=== PATIENT | female | born 1965 | race Caucasian/White ===

== ENCOUNTER 2023-09-16 08:58 | Day surgery (SDC) | payer OTHER ==
[2023-09-16] MEDS ORDERED: ONDANSETRON 4 MG/2 ML VIAL ONE (09:27)
[2023-09-16 09:42] VITALS: TEMP 98.3
[2023-09-16] MEDS: SCOPOLAMINE 1 MG/72 HR PATCH TRANSDERM ONE (09:45)
[2023-09-16] MEDS: LACTATED RINGERS 1,000 ML IV SCH (09:48)
[2023-09-16] MEDS: LIDOCAINE 1% (10MG/ML) FOR IV START INTRADERMA ONE (09:48)
[2023-09-16] MEDS: ONDANSETRON 4 MG/2 ML VIAL IVP ONE (09:49)
[2023-09-16] MEDS ORDERED: PROPOFOL 10 MG/ML 20 ML VIAL IV ONE (10:11)
--- NOTE | 2023-09-16 10:31 | P.PCN ---
Date of Procedure: 09/16/23 Procedure(s) Performed: BRIEF HISTORY: Patient is a 58-year-old pleasant white female scheduled for an elective colonoscopy as a part of screening for colon cancer. PROCEDURE PERFORMED: Colonoscopy. PREOPERATIVE DIAGNOSIS: Screening for colon cancer. IV sedation per Anesthesia. PROCEDURE: After informed consent was obtained, the patient, was brought into the endoscopy unit. IV sedation was administered by Anesthesia under continuous monitoring. Digital rectal examination was normal. Initially the Olympus CF-160 flexible video colonoscope was then inserted in the rectum, gradually advanced into the cecum without any difficulty. Careful examination was performed as the scope was gradually being withdrawn. Ileocecal valve and the appendiceal orifice were visualized and appeared normal. Prep was excellent. Mucosa of the cecum, ascending colon, transverse colon, descending colon, sigmoid colon, and rectum appeared normal. Scattered left sided diverticulosis. Anastomosis from previous sigmoid colectomy located at 35 cm from anal was there appeared normal. Retroflexion was performed in the rectum and no lesions were seen. The patient tolerated the procedure well. IMPRESSION: Normal-appearing colon from rectum to cecum with no evidence of colorectal neoplasia. Scattered left-sided diverticulosis RECOMMENDATIONS: Findings of this examination were discussed with the patient as well as her family. She was advised to have a repeat screening colonoscopy in 10 years.
[2023-09-16 11:01] VITALS: BP 157/84; PULSE 67; RESP 20
== END 2023-09-16 11:09 ==
LOC: ORWHC2ENDO 08:58
PROVIDERS: ATTEND Internal Medicine Gastroenterology
DX: Z12.11 Encounter for screening for malignant neoplasm of colon (principal); K57.30 Diverticulosis of large intestine without perforation or abscess without bleeding; E07.9 Disorder of thyroid, unspecified; F41.9 Anxiety disorder, unspecified; Z79.890 Hormone replacement therapy; Z98.891 History of uterine scar from previous surgery; Z98.890 Other specified postprocedural states; Z79.899 Other long term (current) drug therapy
CPT/HCPCS: 45378; J2405; J2704

== ENCOUNTER 2024-07-06 06:22 | Day surgery (SDC) | payer OTHER ==
[2024-07-01 13:38] VITALS: BMI 29.4
[~2024-07-06 06:22] MED LIST: DEXAMETHASONE SOD PHOSPHATE 4 MG/ML 1 ML VIAL IV ONE; LIDOCAINE 1% (10MG/ML) FOR IV START INTRADERMA PRN
[2024-07-06] MEDS: IV FLUID CONTINUATION 1,000 ML IV ONE ×2 (06:48)
[2024-07-06] MEDS ORDERED: fentaNYL (PF) 50 MCG/ML 2 ML AMP IV PRN (07:00)
[2024-07-06] MEDS: LACTATED RINGERS 1,000 ML IV SCH (07:06)
[2024-07-06] MEDS: ONDANSETRON 4 MG/2 ML VIAL IVP ONE (07:06)
[2024-07-06] MEDS: SCOPOLAMINE 1 MG/72 HR PATCH TRANSDERM STA (07:07)
[2024-07-06] MEDS ORDERED: MIDAZOLAM 2 MG/2 ML VIAL ONE (07:22)
[2024-07-06] MEDS ORDERED: SUCCINYLCHOLINE CHLORIDE 200 MG/10 ML VIAL IV ONE (07:22)
[2024-07-06] MEDS ORDERED: ROCURONIUM 10 MG/ML (5 ML VIAL) IV ONE (07:22)
[2024-07-06] MEDS ORDERED: PROPOFOL 10 MG/ML 20 ML VIAL IV ONE (07:22)
[2024-07-06] MEDS ORDERED: GLYCOPYRROLATE 0.2 MG/ML 2 ML VIAL ONE (07:22)
[2024-07-06] MEDS ORDERED: LIDOCAINE 1% INJ 10MG/ML (20 ML MDV) ONE (07:22)
[2024-07-06] MEDS ORDERED: fentaNYL (PF) 50 MCG/ML 2 ML AMP ONE (07:22)
[2024-07-06] MEDS ORDERED: NEOSTIGMINE 1 MG/ML 10 ML VIAL ONE (07:22)
[2024-07-06] MEDS: ceFAZolin 1,000 MG in SODIUM CHLORIDE 0.9% IRRIGATIO 1,000 ML IRRIGATION PRN (07:26)
[2024-07-06] MEDS: THROMBIN (BOVINE) 5,000 UNIT VIAL TOPICAL ONE (07:51)
[2024-07-06] MEDS: LIDOCAINE 2%-EPI 1:100,000 20 ML VIAL SQ ONE (07:54)
[2024-07-06] MEDS: BUPIVACAINE (PF) 0.5% 30 ML VIAL SQ ONE (07:54)
[2024-07-06] MEDS: LACTATED RINGERS 1,000 ML IV ONE (08:54)
--- NOTE | 2024-07-06 09:04 | XR ---
EXAMINATION TYPE: XR cervical spine 1V DATE OF EXAM: 07/06/2024 COMPARISON: NONE CLINICAL INDICATION: Female, 59 years old with history of ANTERIOR CERVICAL FUSION; TECHNIQUE: Single portable crosstable lateral view of the cervical spine is obtained FINDINGS: Exam is for surgical planning and not for diagnostic purposes. Metallic pointer is localize d to the C6-C7 level. IMPRESSION: As above. . [facility], , 07/06/2024 9:01 AM
[2024-07-06] MEDS ORDERED: HYDROmorphone 0.5 MG/0.5 ML SYRINGE IVP PRN (09:21)
[2024-07-06] MEDS ORDERED: ACETAMINOPHEN TAB 500 MG TAB PO PRN (09:21)
--- NOTE | 2024-07-06 09:28 | P.OP ---
Date of Procedure: 07/06/24 Preoperative Diagnosis: Cervical stenosis C5-6 C6-7, cervical disc herniation C5-6 C6-7, degenerative disc disease C5-6 C6-7, upper extreme radiculopathy, neck pain Postoperative Diagnosis: Same Anesthesia: GETA Pathology: none sent Condition: stable Disposition: PACU Description of Procedure: BRIEF OPERATIVE NOTE Preoperative Diagnosis:Cervical stenosis C5-6 C6-7, cervical disc herniation C5- 6 C6-7, degenerative disc disease C5-6 C6-7, upper extreme radiculopathy, neck pain Postoperative Diagnosis:Cervical stenosis C5-6 C6-7, cervical disc herniation C5-6 C6-7, degenerative disc disease C5-6 C6-7, upper extreme radiculopathy, neck pain Procedure: Anterior cervical decompression with discectomy and fusion C5-6 C6-7 Placement of interbody graft C5-6 C6-7 Application of anterior cervical plate C5-6-7 Surgeon: Dr. Farfan Welder Tech: Forrest BISWAS who is present throughout the entire the case persistence during positioning, dissection, exposure, visualization, and all crucial elements of the case as well as closure. Anesthesia: General anesthesia Estimated blood loss: Approximately 20 cc Complications: None apparent Components implanted: Gavin K2 M Lind[place] anterior cervical plate system with screws and Vikos interbody allograft bone graft x 2 with 1 cc of DBX bone putty Disposition: To recovery room in good stable condition. OPERATIVE INDICATIONS The patient has had long-standing issues in their neck and upper extremities. She has been having significant worsening in her neck in particular to the left side along with her upper extremities. She is found to have significant changes at her cervical spine with evidence of foraminal stenosis with degenerative disc disease and disc herniation which correlated well with her neck and upper extremity symptoms. The patient has been through conservative treatment. We discussed various treatment options including surgery, and the patient wishes to proceed with surgery We discussed the risk, patient's alternatives and benefits of surgery including but not limited to, risk of bleeding risk of infection, risk of need for further surgery, risk of decreased, loss of motion, muscle function, malunion nonunion, hardware failure, nerve damage, paralysis, heart attack, and . OPERATIVE SUMMARY After discussing all the risks, patient alternatives and benefits at length, the patient elected to proceed with surgical intervention, signed informed consent, and presented for their procedure. The patient was seen and examined in the preoperative holding area and the surgical site was marked. The patient was given antibiotics and brought to the operating room. The patient was positioned on the operating room table in a supine position shamir ng careful to pad any bony prominences and pressure points. The patient was sedated and intubated by anesthesia in standard fashion. Once the airway and C- spine were stabilized the patient's arms were padded and tucked at her side, with her shoulders gently taped. The head was placed in a donut pad with the neck in good neutral alignment and position. We were careful to maintain the patient's cervical spine and good neutral alignment and position throughout. The patient was prepped and draped in a normal standard fashion. An appropriate timeout and keystone protocol performed. We were able to proceed with the surgery. The local wound area was infiltrated with local anesthetic. An incision was made transversely approximately 2-1/2 cm over the appropriate levels on the right at C6. Dissection was taken down subcutaneously to the level of the platysma which was split in line with its fibers. Dissection was taken with a carotid approach, with the trachea and esophagus medial and the carotid sheath laterally. We dissected down to the anterior surface of the vertebral bodies. Intraoperative x-ray was taken which showed a marker at the appropriate level at the disc base of C6-7. With the appropriate level positively confirmed, I exposed out at C6-7 and C5-6, we were able to proceed with discectomy at the appropriate levels. All of the operative levels were exposed appropriately. The patient had all their twitches back, and there was no evidence of recurrent laryngeal issue. The wound was copiously irrigated and suctioned dry as had been done periodically throughout the case. At the appropriate levels, starting at C6-7 and then moving to C5-6 I established an annulotomy with an 11 blade scalpel. A discectomy was performed with a combination of pituitary rongeurs, curettes, a high-speed bur, and Kerrison rongeurs. Note was made of severe disc degeneration and disc height loss with anterior osteophytic spurring which was removed appropriately. There was p osterior osteophytes as well which were removed to help supplement the decompression. The posterior longitudinal ligament was taken down as were any posterior osteophytes. This gave good central and bilateral foraminal decompression. There is no evidence of any dural tear or leak. The endplates were prepared with a high-speed bur. With the endplates in good parallel position, I was able to size for the appropriate size interbody graft. The wound was irrigated and suctioned dry the graft was prepared and malleted into position. It had good alignment and position with the anterior surface flush with the anterior surface of the vertebral bodies. This was done similarly the appropriate levels first at C6-7 and then at C5-6. With the grafts intact, I was able to measure and contour and appropriate sized plate. The plate was positioned at the midline over the appropriate levels at C5-6 and 7. Screw holes were established with a hand drill and drill guide. Screws were placed in good alignment and position with excellent bony purchase. They were seated under the locking device. The construct was checked and found to be stable. Intraoperative x-ray was taken which showed good alignment and position of the implants at the appropriate levels. There was no evidence of any dural tear or leak. Good hemostasis was maintained. The wound was copiously irrigated and suctioned dry as had been done periodically throughout the case. The platysma was closed with absorbable suture. The subcutaneous tissue was closed. The subcuticular tissue was closed with absorbable suture. The wound was cleaned and dried and dressed appropriately. A soft cervical collar was placed appropriately. The patient was woken up by anesthesia, extubated, transferred back gently to their hospital bed and brought to the recovery room in good stable condition. The patient will be admitted to the hospital for appropriate postoperative care, medical management and monitoring. We will continue to follow them closely about the postoperative course.
--- NOTE | 2024-07-06 09:48 | XR ---
EXAMINATION TYPE: XR cervical spine 1V DATE OF EXAM: 07/06/2024 COMPARISON: Cervical spine x-ray earlier today CLINICAL INDICATION: Female, 59 years old with history of HARDWARE PLACEMENT; TECHNIQUE: Single portable crosstable lateral view of cervical spine is obtained. FINDINGS: There is new anterior fusion plate with artificial disc material at C5-C7 levels. Alignment is stable with slight grade 1 retrolisthesis C5 on C6. Anterior endotracheal tube is redemonstrated similar to prior. IMPRESSION: As above. [facility], , 07/06/2024 9:45 AM
[2024-07-06] MEDS: HYDROmorphone 0.5 MG/0.5 ML SYRINGE IVP PRN (09:55)
[2024-07-06] MEDS: MEPERIDINE 25 MG/ML SYRINGE IVP STA (10:36)
[2024-07-06] MEDS: DEXAMETHASONE SOD PHOSPHATE 4 MG/ML 1 ML VIAL IV ONE (13:02)
[2024-07-06] MEDS: HYDROmorphone 1 MG/ML 1 ML SYRINGE IVP PRN (13:08)
[2024-07-06] MEDS: SODIUM CHLORIDE 0.9% 1,000 ML IV SCH (13:09)
[2024-07-06] MEDS: ONDANSETRON 4 MG/2 ML VIAL IVP PRN (17:10)
[2024-07-06] MEDS: BENZOCAINE/MENTHOL LOZENG 1 EACH LOZENGE MUCOUS MEM PRN (23:10)
[2024-07-06] MEDS: CYCLOBENZAPRINE 10 MG TAB PO PRN (23:10)
[2024-07-07] MEDS: LEVOTHYROXINE 75 MCG TAB PO SCH (05:37)
[2024-07-07] MEDS: HYDROcodone/APAP 5-325MG 1 EACH TAB PO PRN (07:00)
[2024-07-07] MEDS: NON FORMULARY DRUG (Semaglutide [Wegovy] 0.5 MG/0.5 ML Each) SQ SCH (07:40)
[2024-07-07 07:49] VITALS: BP 136/86; PULSE 69; RESP 17; TEMP 98.3
[2024-07-07] MEDS: CHOLECALCIFEROL 125 MCG (5000 IU) TABLET PO SCH (08:08)
[2024-07-07] MEDS: FLUoxetine HCL 20 MG CAP PO SCH (08:08)
[2024-07-07] MEDS: hydroCHLOROthiazide 25 MG TAB PO SCH (08:08)
[2024-07-07] MEDS: SENNOSIDES-DOCUSATE SODIUM 1 EACH TAB PO SCH (08:08)
--- NOTE | 2024-07-07 09:50 | P.DS ---
Providers Date of admission: 07/06/24 Attending physician: Matilde Farfan Primary care physician: Alex Moya [facility] Course: The patient presented on the day of admission as per their operative note. She presented for her anterior cervical decompression with discectomy and fusion at C5-6 C6-7 for disc herniation with cervical stenosis and upper extreme radiculopathy. Postoperatively she says that she feels her arms are doing well. She thinks her arms have had improvement already. She has been able to tolerate her soft diet. Her neck has some soreness but is controlled with pain medication. Physical Exam The incision site is clean dry and intact. There is no erythema no drainage. There is no purulence no evidence of infection. Her neck is soft and supple. She has good motion in her upper extremities. The wound site is clean dry and intact without any drainage. Abdomen soft and nontender. Chest has good excursion with deep inspiration and expiration. The patient has active and passive range of motion intact at the upper and lower extremities. There is no acute change in neurologic status. Hospital Course Postoperative day 1 status post anterior cervical decompression with discectomy and fusion C5-6 C6-7 for her cervical stenosis with disc herniation and upper extremity radiculopathy. The patient has been making good progress postoperatively. They have completed the prophylactic antibiotics without any signs or symptoms of infection. The patient has been able to advance their diet, and is tolerating diet adequately. The pain was initially controlled with IV medications and is now controlled appropriately with oral medications. The patient has been able to increase their mobilization. The patient has progressed appropriately. I think they are in good stable condition for discharge today. They will be sent home with appropriate prescriptions. I answered their questions to the best of my ability in a language that they can understand and they are agreeable with the plan. They will follow up as directed in approximately 2 weeks or sooner if she is having problems. Patient Condition at Discharge: Good Plan - Discharge Summary Discharge Rx Participant: Yes New Discharge Prescriptions: New HYDROcodone/APAP 5-325MG [[place] 5-325] 1 tab PO Q4HR PRN #42 tab PRN Reason: Pain No Action Levothyroxine Sodium 150 mg PO QAM Cholecalciferol [Vitamin D3 (125 Mcg = 5000 Iu)] 125 mcg PO DAILY FLUoxetine HCL 40 mg PO QAM hydroCHLOROthiazide 25 mg PO DAILY Semaglutide [Wegovy] 0.5 mg SQ TH Discharge Medication List Levothyroxine Sodium 150 mg PO QAM 09/15/23 [History] Cholecalciferol [Vitamin D3 (125 Mcg = 5000 Iu)] 125 mcg PO DAILY 07/01/24 [Hist ory] FLUoxetine HCL 40 mg PO QAM 07/01/24 [History] Semaglutide [Wegovy] 0.5 mg SQ TH 07/01/24 [History] hydroCHLOROthiazide 25 mg PO DAILY 07/01/24 [History] HYDROcodone/APAP 5-325MG [[place] 5-325] 1 tab PO Q4HR PRN #42 tab 07/07/24 [Rx] Follow up Appointment(s)/Referral(s): Matilde Farfan DO [Doctor of Osteopathic Medicine] - 2 Weeks (As scheduled) Activity/Diet/Wound Care/Special Instructions: Keep site clean. May shower with waterproof Tegaderm intact. Do not soak in a tub. After 72 hours postoperatively, patient May remove dressing and then may shower with area uncovered. Leave glue intact and allow it to fray off on its own. May ambulate as tolerated. Avoid heavy or rigorous activity. No repetitive bending twisting or lifting. No overhead work. Discharge Disposition: HOME SELF-CARE
== END 2024-07-07 12:08 | disposition home or self-care (01) ==
LOC: OR 06:22 → 4SSUR 09:17 → OR 07-07 12:08
PROVIDERS: ATTEND Orthopaedic Surgery Orthopaedic Surgery of the Spine
DX: M48.02 Spinal stenosis, cervical region (principal); M50.122 Cervical disc disorder at C5-C6 level with radiculopathy; S39.012D Strain of muscle, fascia and tendon of lower back, subsequent encounter
CPT/HCPCS: 22551; 22552; 22845; 22853; 20930; 72020; C1713 ×2; C1762; J2250; J0330; J2710; J0690 ×2; J2405; J2003; J3010; J1171 ×3; J2704; J0665; J1596; J2175